=== PATIENT | male | born 2000 | race Two or more races ===

== ENCOUNTER 2025-01-01 23:12 | Emergency (ER) | payer OTHER ==
[~2025-01-01] VITALS: Ht 170.2 cm; Wt 77.1 kg
[2025-01-02] MEDS ORDERED: TETANUS & DIPHTHERIA TOX,ADULT 0.5 ML VIAL IM STA (00:33)
[2025-01-02] MEDS ORDERED: CEFAZOLIN SODIUM 1,000 MG VIAL IM STA (00:34)
== END 2025-01-02 01:25 | disposition home or self-care (01) ==
LOC: ER 23:14
DX: S61.219A Laceration without foreign body of unspecified finger without damage to nail, initial encounter (principal); W26.0XXA Contact with knife, initial encounter; Y93.89 Activity, other specified; Y92.89 Other specified places as the place of occurrence of the external cause; Y99.8 Other external cause status; Z88.6 Allergy status to analgesic agent
CPT/HCPCS: 90471; 90714; 96372; 99282; J0690; J1670